=== PATIENT | female | born 1990 | race Asian ===

== ENCOUNTER 2017-08-08 09:42 | Emergency (ER) | payer OTHER ==
--- NOTE | 2017-08-08 10:57 | ED Physician Documentation ---
PD HPI FEMALE - Stated complaint Stated Complaint: FEM - Chief complaint Chief Complaint: General - History obtained from History obtained from: Patient - History of Present Illness Timing - onset: How many weeks ago (1) Timing - duration: Weeks (1) Timing - details: Gradual onset, Still present Associated symptoms: Vaginal pain Contributing factors: Sexually active, Exposed to STD Similar symptoms before: Has not had sx before Recently seen: Not recently seen - Additional information Additional information: 26 y/o female with one week history of burning sensation in the vaginal area has taken a look with a mirror and found some small bumps. Review of Systems Constitutional: denies: Fever Nose: reports: Congestion Respiratory: denies: Cough GI: denies: Vomiting : reports: Vaginal bleeding. denies: Dysuria, Frequency, Discharge Skin: denies: Rash Musculoskeletal: denies: Neck pain, Back pain, Extremity pain PD PAST MEDICAL HISTORY - Past Surgical History Past Surgical History: No - Present Medications Home Medications: Ambulatory Orders Medication Instructions Recorded Confirmed [id number]/FA/Omega3/Dha/Fish Oil 1 tab PO DAILY 10/21/15 10/21/15 [ Gummies] Valacyclovir HCl [Valacyclovir] 1,000 mg PO BID #20 tablet 08/08/17 - Allergies Allergies/Adverse Reactions: Allergies Allergy/AdvReac Type Severity Reaction Status Date / Time citalopram [From Celexa] Allergy Unknown Verified 08/08/17 10:02 - Social History Does the pt smoke?: No Smoking Status: Never smoker Does the pt drink ETOH?: No Does the pt have substance abuse?: No - Immunizations Immunizations are current?: Yes PD ED PE NORMAL - Vitals Vital signs reviewed: Yes (hypertensive mild ) - General General: Alert and oriented X 3, No acute distress, Well developed/nourished - HEENT HEENT: Atraumatic, PERRL - Respiratory Respiratory: No respiratory distress - Female Female : Database Administration Manager present (Nely), Other (There are multiple small vesicles on the left labial area consistent with HSV) - Derm Derm: Normal color, Warm and dry, No rash - Extremities Extremities: No deformity, No edema - Neuro Neuro: No motor deficit, No sensory deficit Eye Opening: Spontaneous Motor: Obeys Commands Verbal: Oriented GCS Score: 15 - Psych Psych: Normal mood, Normal affect Results - Vitals Vitals: Vital Signs - 24 hr 08/08/17 09:55 Temperature 36.8 C Heart Rate 74 Respiratory 20 Rate Blood Pressure 120/82 H O2 Saturation 100 Oxygen O2 Source Room air - Labs Labs: Laboratory Tests 08/08/17 10:55 Urine Color YELLOW Urine Clarity CLEAR Urine pH 6.5 Ur Specific [place] <=1.005 Urine Protein NEGATIVE Urine Glucose (UA) NEGATIVE Urine Ketones NEGATIVE Urine Occult Blood NEGATIVE Urine Nitrite NEGATIVE Urine Bilirubin NEGATIVE Urine Urobilinogen 0.2 (NORMAL) Ur Leukocyte Esterase NEGATIVE Ur Microscopic Review NOT INDICATED Urine Culture Comments NOT INDICATED Urine HCG, Qual NEGATIVE PD MEDICAL DECISION MAKING - ED course Complexity details: considered differential, d/w patient ED course: 26-year-old female with what appears to be acute HSV. A swab is obtained for confirmation. Departure - Departure Disposition: 01 Home, Self Care Clinical Impression: Herpes genitalis Qualifiers: Herpes simplex infection site: vulvovaginitis Qualified Code(s): A60.04 - Herpesviral vulvovaginitis Instructions: ED Herpes Simplex Virus Type 2 Follow-Up: SAIDA Urbina [Provider Group] Prescriptions: Valacyclovir HCl [Valacyclovir] 1,000 mg PO BID #20 tablet
[2017-08-08 11:17] LABS: BILIRUBIN,URINE NEGATIVE (NEGATIVE); GLUCOSE, URINE (UA) NEGATIVE (NEGATIVE); KETONES,URINE (UA) NEGATIVE (NEGATIVE); LEUKOCYTE ESTERASE, URINE NEGATIVE (NEGATIVE); NITRITE,URINE NEGATIVE (NEGATIVE); OCCULT BLOOD,URINE NEGATIVE (NEGATIVE); PH,URINE 6.5 PH (5.0-7.5); PROTEIN,URINE NEGATIVE (NEGATIVE); UROBILINOGEN,URINE 0.2 (NORMAL) E.U./dL (NORMAL)
[2017-08-08 11:19] LABS: CLARITY,URINE CLEAR (CLEAR); HCG UR QUAL NEGATIVE
[2017-08-08 11:39] VITALS: BP 133/70
[2017-08-11 09:02] LABS: HSV 2 DNA DETECTED; SOURCE VAGINA
== END 2017-08-08 11:38 | disposition home or self-care (01) ==
LOC: ED 09:42
DX: A60.04 Herpesviral vulvovaginitis (principal)
CPT/HCPCS: 81001; 81003; 81025; 87086; 87529; 99283